=== PATIENT | male | born 1970 | race African-American/Black ===

== ENCOUNTER 2024-06-14 12:23 | Emergency (ER) | payer OTHER ==
[~2024-06-14] VITALS: Ht 172.7 cm; Wt 71.2 kg
[~2024-06-14 12:23] MED LIST: MIDRIN OR; RISPERDAL0.5 MG OR; VISTARIL50 MG OR
[2024-06-14 12:50] VITALS: BP 145/79
[2024-06-14 13:00] VITALS: BP 130/81
[2024-06-14 13:03] LABS: BASO% 1.4 % (0-3); EOS% 2.3 % (0-8); HEMATOCRIT 42.1 % (39.0-50.0); HEMOGLOBIN 13.2 g/dl (14.0-18.0); LYMPH% 34.8 % (15-41); MEAN CELL VOLUME 89.6 fL CALC (80.0-100.0); MEAN CORPUSCULAR HGB 28.1 pG CALC (26.0-32.0); MEAN CORPUSCULAR HGB CONC 31.4 g/dL CAL (32.0-36.0); MONO% 8.9 % (2-13); NEUT# 2.32 thou/uL (1.82-7.42); NEUT% 52.6 % (42-76); RED BLOOD COUNT 4.7 mill/uL (4.70-6.10); RED CELL DISTRI WIDTH 13.9 % (11.5-15.5)
[2024-06-14 13:22] LABS: ALBUMIN 4.6 g/dL (3.2-5.0); BILIRUBIN, TOTAL 0.5 mg/dL (0.2-1.3); CREATININE 0.9 mg/dL (0.7-1.3); POTASSIUM 4.6 mmol/l (3.5-5.1); TOTAL PROTEIN 7.4 g/dL (6.3-8.2)
[2024-06-14 13:29] LABS: URINE BILIRUBIN - DIPSTICK Negative (NEGATIVE); URINE BLOOD DIPSTICK Negative (NEGATIVE); URINE GLUCOSE - DIPSTICK Negative (NEGATIVE); URINE KETONE Negative (NEGATIVE); URINE LEUK ESTERASE Negative (NEGATIVE); URINE NITRITE - DIPSTICK Negative (Negative); URINE PROTEIN - DIPSTICK Negative (NEG-TRACE); URINE SPECIFIC GRAVITY 1.015; URINE UROBILINOGEN - DIPSTICK 0.2 E.U./dL (0.2)
[2024-06-14 13:30] VITALS: BP 137/87
[2024-06-14 13:32] LABS: URINE COLOR Yellow
[2024-06-14] MEDS ORDERED: NAPROXEN500 MG PO (15:05)
[2024-06-14 15:27] VITALS: BP 137/84
[2024-06-14 15:29] VITALS: BP 137/84
== END 2024-06-14 15:33 | disposition home or self-care (01) | DRG 730 ==
LOC: ED 12:23
PROVIDERS: Family Medicine
DX: N43.3 Hydrocele, unspecified (principal); N50.3 Cyst of epididymis